=== PATIENT | female | born 1935 | race Caucasian/White ===

== ENCOUNTER 2020-01-02 08:49 | Outpatient (CLI) | payer MEDICARE, BC, SELFPAY ==
--- NOTE | ~2020-01-02 | US_ITS ---
EXAMINATION: US carotid duplex BI DATE: 01/02/2020 09:32 INDICATION: Carotid stenosis TECHNIQUE: Grayscale, color Doppler, and pulsed Doppler images of the cervical carotid arteries were obtained. The degree of vessel stenosis is placed in one of the following categories: normal, <50%, 5 0-69%, >=70% but less than near-occlusion, near-occlusion, or total occlusion. Note that percent sten osis relative to normal distal artery lumen diameter is indirectly measured from velocity measurement s as described by Junior, et al. Radiology 2003; 229:340-346. COMPARISON: None. FINDINGS: RIGHT: The right common carotid artery (CCA) peak systolic velocity (PSV) is 87 cm/s. The right internal car otid artery (ICA) PSV is 88 cm/s. The right ICA end-diastolic velocity (EDV) is 25 cm/s. The right IC A/CCA PSV ratio is 1.0. Grayscale and color Doppler images yield an estimate of <50% diameter reducti on from plaque in the ICA. The external carotid artery (ECA) PSV is 97 cm/s. There is antegrade flow in the right vertebral artery. LEFT: The left CCA PSV is 88 cm/s. The left ICA PSV is 108 cm/s. The left ICA EDV is 11 cm/s. The left ICA/ CCA PSV ratio is 1.2. Grayscale and color Doppler images yield an estimate of <50% diameter reduction from plaque in the ICA. The ECA PSV is 116 cm/s. There is antegrade flow in the left vertebral arter y. IMPRESSION: 1. <50% stenosis in the right internal carotid artery. 2. <50% stenosis in the left internal carotid artery. Reviewed, dictated and finalized at location A.
== END 2020-01-02 08:50 | disposition home or self-care (01) ==
PROVIDERS: PCP Internal Medicine; Visit Provider Internal Medicine
DX: I65.29 Occlusion and stenosis of unspecified carotid artery (principal)
CPT/HCPCS: 93880

== ENCOUNTER 2020-07-07 10:45 | Outpatient (CLI) | payer MEDICARE, BC, SELFPAY ==
--- NOTE | ~2020-07-07 | DEXA_ITS ---
Bone Density Report Name: Diamante Draper Age: 84 Sex: Female Ethnicity: White Date of : 1935 Indication: postmenopausal osteoporosis; monitoring treatment; height loss; Referring Provider: Miguel Noriega Study: Bone densitometry was performed. Exam Date: July 07, 2020 Accession number: [id number] Bone Density: Region BMD T-score Z-score Classification AP Spine(L1-L4) 0.827 -2.0 0.9 Osteopenia Femoral Neck (Left) 0.498 -3.2 -0.6 Osteoporosis Total Hip (Left) 0.589 -2.9 -0.6 Osteoporosis Femoral Neck (Right) 0.512 -3.0 -0.5 Osteoporosis Total Hip (Right) 0.614 -2.7 -0.4 Osteoporosis Femoral Neck Mean 0.505 -3.1 -0.6 Osteoporosis Total Hip Mean 0.601 -2.8 -0.5 Osteoporosis World Health Organization criteria for BMD impression classify patients as: Normal (T-score at or above -1.0), Osteopenia (T-score between -1.0 and -2.5), or Osteoporosis (T-score at or below -2.5). 10-year Fracture Risk: FRAX not reported because: Some T-score for Spine Total or Hip Total or Femoral Neck at or below -2.5 Treated for osteoporosis Previous Exams: Region Exam Age BMD T-score BMD Change BMD Change Date g/cm2 vs Baseline vs Previous AP Spine (L1-L4) 07/07/2020 84 0.827 -2.0 0.066 (8.6%)# 0.005 (0.6%)# 06/14/2018 82 0.822 -2.0 0.061 (8.0%)* 0.034 (4.3%)* 03/09/2015 79 0.788 -2.4 0.027 (3.6%)* -0.016 (-1.9%) 11/13/2011 75 0.804 -2.2 0.043 (5.6%)* 0.036 (4.7%)* 10/11/2009 73 0.768 -2.5 0.007 (0.9%) 0.007 (0.9%) 09/09/2007 71 0.761 -2.6 Total Hip(Left) 07/07/2020 84 0.589 -2.9 -0.081 (-12.2% -0.065 (-10.0% 06/14/2018 82 0.654 -2.4 -0.016 (-2.4%) 0.014 (2.1%) 03/09/2015 79 0.641 -2.5 -0.030 (-4.4%) -0.030 (-4.4%) 11/13/2011 75 0.670 -2.2 0.000 (0.0%) -0.009 (-1.4%) 10/11/2009 73 0.680 -2.1 0.010 (1.4%) 0.010 (1.4%) 09/09/2007 71 0.670 -2.2 Total Hip(Right) 07/07/2020 84 0.614 -2.7 -0.004 (-0.6%) 0.007 (1.2%)# 11/13/2011 75 0.607 -2.7 -0.011 (-1.7%) -0.010 (-1.7%) 10/11/2009 73 0.617 -2.7 0.000 (-0.1%) 0.000 (-0.1%) 09/09/2007 71 0.618 -2.7 *Denotes significance at 95% confidence level, LSC for AP Spine = 0.022 g/cm2, LSC for Total Hip = 0.027 g/cm2 # Denotes dissimilar scan types or analysis methods Clinical Information Provided by Patient: Smokes Is being treated for osteoporosis Has used the following medications: Fosamax (i.e. alendronate), Vitamin D Patien
--- NOTE | ~2020-07-07 | XR_ITS ---
EXAMINATION: XR chest 2V DATE: 07/07/2020 11:03 INDICATION: Lung nodule. TECHNIQUE: Frontal and lateral views of the chest were obtained. COMPARISON: Chest 2 views 05/13/2019, chest CT 03/13/2014 FINDINGS: The lungs are hyperexpanded with lucencies, consistent with emphysema. There are changes of left upper lobectomy. No pleural effusion or pneumothorax. The heart size is normal. There are is an old healed fracture of left fifth rib. There are multiple chronic vertebral body fractures. IMPRESSION: 1. Emphysema. Reviewed, dictated and finalized at location B. CUTTER APPRENTICE IMPRESSION: 1. Emphysema.
== END 2020-07-07 10:46 | disposition home or self-care (01) ==
LOC: CHSIMG 10:48
PROVIDERS: PCP Internal Medicine; Visit Provider Internal Medicine
DX: M81.0 Age-related osteoporosis without current pathological fracture (principal); R91.1 Solitary pulmonary nodule
CPT/HCPCS: 71046; 77080

== ENCOUNTER 2020-12-25 08:11 | Outpatient (CLI) | payer MEDICARE, SELFPAY | END 2020-12-25 08:12 | disposition home or self-care (01) | LOC: CHSCOVIDVC 08:13 | PROVIDERS: PCP Internal Medicine | DX: Z23 Encounter for immunization (principal) | CPT/HCPCS: 0011A; 91301 ==

== ENCOUNTER 2021-01-22 08:07 | Outpatient (CLI) | payer MEDICARE, SELFPAY | END 2021-01-22 08:08 | disposition home or self-care (01) | LOC: CHSCOVIDVC 08:07 | PROVIDERS: PCP Internal Medicine | DX: Z23 Encounter for immunization (principal) | CPT/HCPCS: 0012A; 91301 ==

== ENCOUNTER 2021-06-22 10:50 | Outpatient (CLI) | payer MEDICARE, SELFPAY ==
--- NOTE | ~2021-06-22 | CT_ITS ---
EXAMINATION: CT lung screening DATE: 06/22/2021 11:08 INDICATION: Personal history of tobacco dependence, current smoker with 34 pack year history TECHNIQUE: Computed tomography (CT) of the chest was performed without intravenous contrast. The dose -length product (DLP) was 57.16 mGy-cm. Automated exposure control and iterative reconstruction techn [employer] were employed. COMPARISON: 03/13/2014; chest radiograph dated 07/07/2020 FINDINGS: There is moderate emphysema. Scarring is noted in the lung apices. No suspicious pulmonary nodules are identified. There are lymph nodes of the right major fissure. A calcified pleural plaque is noted posteriorly on the left. There is no pleural effusion or pneumothorax. No pathologically enl arged thoracic lymph nodes are identified. The heart size is normal. Calcified coronary artery athero sclerosis is noted. Calcified bilateral hilar and mediastinal lymph nodes are consistent with old gra nulomatous disease. There is a hemorrhagic cyst of the right kidney upper pole. Multiple chronic vert ebral body fractures are again noted. IMPRESSION: 1. Lung-RADS category 1: Negative. Reviewed, dictated and finalized at location A.
== END 2021-06-22 10:51 | disposition home or self-care (01) ==
LOC: CHSIMG 10:53
PROVIDERS: PCP Internal Medicine; Visit Provider Internal Medicine
DX: Z12.2 Encounter for screening for malignant neoplasm of respiratory organs (principal); Z87.891 Personal history of nicotine dependence
CPT/HCPCS: 71271

== ENCOUNTER 2022-07-04 13:52 | Outpatient (CLI) | payer MEDICARE, SELFPAY ==
--- NOTE | ~2022-07-04 | CT_ITS ---
EXAMINATION: CT lung screening DATE: 07/04/2022 14:37 INDICATION: Personal history of nicotine dependence, current smoker with 35 pack year history TECHNIQUE: Computed tomography (CT) of the chest was performed without intravenous contrast. The dose -length product (DLP) was 59.72 mGy-cm. Automated exposure control and iterative reconstruction techn ique were employed. COMPARISON: 06/22/2021 FINDINGS: There is moderate emphysema. Scarring is again noted in the lung apices. Stable fissural ly mph nodes are present in the right major fissure. No suspicious pulmonary nodules are identified. The re is a stable calcified plaque posteriorly on the left. No pathologically enlarged thoracic lymph no pancho are identified. The heart size is normal. Calcified right hilar and mediastinal lymph nodes are c onsistent with old granulomatous disease. There are changes of left partial pneumonectomy. There are multiple compression chronic thoracic vertebral body compression and burst fractures. There is a new compression fracture of T6. An approximately 10 mm soft tissue density is noted in the medial aspect of the left breast. There is a 7 mm hemorrhagic cyst of the right kidney. IMPRESSION: 1. Lung-RADS category 1S: Negative. 2. Nodular soft tissue density in the medial aspect of the left breast. Consider further evaluation w ith diagnostic mammogram and ultrasound. Reviewed, dictated and finalized at location B. MING POOL SALESPERSON IMPRESSION: 1. Lung-RADS category 1S: Negative. 2. Nodular soft tissue density in the medial aspect of the left breast. Conside r further evaluation with diagnostic mammogram and ultrasound.
== END 2022-07-04 13:53 | disposition home or self-care (01) ==
LOC: CHSIMG 13:54
PROVIDERS: PCP Internal Medicine; Visit Provider Internal Medicine
DX: Z12.2 Encounter for screening for malignant neoplasm of respiratory organs (principal); Z87.891 Personal history of nicotine dependence
CPT/HCPCS: 71271

== ENCOUNTER 2022-07-13 08:54 | Outpatient (CLI) | payer MEDICARE, SELFPAY ==
--- NOTE | ~2022-07-13 | MMUS_ITS ---
EXAMINATION: MM diagnostic jacky BI w samreen, US breast LT complete HISTORY: Nodular densities seen in the left breast on prior CT examination. TECHNIQUE: Additional 3-D tomosynthesis images of the breasts were performed and synthetic 2-D images were generated. CAD analysis was submitted and interpreted. High resolution breast ultrasound was pe rformed. COMPARISON: 01/17/2013 BREAST PARENCHYMAL COMPOSITION: Breast composed of scattered areas of fibroglandular density FINDINGS: MAMMOGRAPHIC FINDINGS: The right breast is stable without evidence for malignancy. In the upper inner quadrant of the left b reast posteriorly there is a cluster of nodules, the largest of which appears spiculated measuring 9 mm maximum dimension. ULTRASOUND: Complete left breast ultrasound including all 4 quadrants in the subareolar location: At 10:00, 8 cm from the nipple, there is an antiparallel irregular shaped hypoechoic mass measuring 10 x 9 x 9 mm wi th posterior shadowing. This corresponds to the area of abnormality on mammography. At 2:00, 4 cm fro m the nipple, there is a slightly irregular hypoechoic mass with mixed posterior attenuation, paralle l orientation measuring 9 x 7 x 4 mm. IMPRESSION: 1. Suspicious left breast masses located at 10:00, 8 cm from the nipple and 2:00, 4 cm from the nippl e. 2. Ultrasound-guided left breast biopsies recommended. BI-RADS category 5, highly suggestive of malignancy. Reviewed, dictated and finalized at location A. ROOM CHECKER IMPRESSION: 1. Suspicious left breast masses located at 10:00, 8 cm from the nipple and 2:0 0, 4 cm from the nipple. 2. Ultrasound-guided left breast biopsies recommended. BI-RADS category 5, highly suggestive of malignancy.
== END 2022-07-13 08:55 | disposition home or self-care (01) ==
LOC: CHSIMG 08:56
PROVIDERS: PCP Internal Medicine; Visit Provider Internal Medicine
DX: N63.24 Unspecified lump in the left breast, lower inner quadrant (principal)
CPT/HCPCS: 76641; 77062; 77066; G0279

== ENCOUNTER 2022-07-25 08:56 | Outpatient (CLI) | payer MEDICARE, SELFPAY ==
--- NOTE | ~2022-07-25 | MMUS_ITS ---
EXAMINATION: US breast biopsy LT w image, MM post biopsy invasive LT DATE: 07/25/2022 10:41 (accession [id number]), 07/25/2022 10:37 (accession [id number]) INDICATION: Indeterminate left breast mass at the 10:00 location. Ultrasound-guided core biopsy is re quested to evaluate for malignancy. TECHNIQUE AND FINDINGS: The risks and potential benefits of the procedure were discussed with the patient including bleeding and infection. A time out was performed. The skin of the left breast was prepared and draped in usual sterile fashion. Lidocaine was used for superficial anesthesia. Lidocaine with epinephrine was used for deep anesthesia. A vacuum-assisted biopsy needle was advanced through to the outer edge of the region of interest from an inferior approach utilizing sonographic guidance. A total of six tissue core samples were obtaine d through the lesion. A tissue marker clip was then placed at the biopsy site. Hemostasis was achieve d. A sterile bandage was applied. The patient tolerated procedure well and there was no evidence of immediate complication. The patient was given verbal instructions to return to the Emergency Department in the event of severe breast pa in or rapid breast enlargement. A two view left breast mammogram was obtained to document tissue abel er clip placement. IMPRESSION: 1. Successful ultrasound-guided vacuum-assisted biopsy of left breast mass with tissue marker placeme nt. Reviewed, dictated and finalized at location A. USTION ENGINEER IMPRESSION: 1. Successful ultrasound-guided vacuum-assisted biopsy of left breast mass with tissue marker placement.
== END 2022-07-25 08:57 | disposition home or self-care (01) ==
PROVIDERS: PCP Internal Medicine; Visit Provider Internal Medicine
DX: D05.12 Intraductal carcinoma in situ of left breast (principal)
CPT/HCPCS: 19083; 88305; 88342; 88360; 88365; A4648

== ENCOUNTER 2022-10-30 08:46 | Outpatient (CLI) | payer MEDICARE, SELFPAY ==
--- NOTE | 2022-10-30 09:00 | ECG_ITS ---
Measurements Intervals [place] Rate: 88 P: 91 WI: 181 QRS: 91 QRSD: 90 T: 86 QT: 368 QTc: 446 Interpretive Statements SINUS RHYTHM LIMB LEAD REVERSAL DELAYED PRECORDIAL R/S TRANSITION MINIMAL Q WAVES- INFERIOR LEADS BASELINE ARTIFACT- II, III, AVF, V6 BORDERLINE ECG NO PREVIOUS ECG AVAILABLE FOR COMPARISON Electronically Signed On 10-30-2022 11:40:15 CAREER DISCOVERY TEACHER by Roman King D.O.
== END 2022-10-30 08:47 | disposition home or self-care (01) ==
PROVIDERS: PCP Internal Medicine; Visit Provider Anesthesiology
DX: Z01.818 Encounter for other preprocedural examination (principal); Z72.0 Tobacco use
CPT/HCPCS: 93005

== ENCOUNTER 2022-11-03 01:50 | Day surgery (SDC) | payer MEDICARE, SELFPAY ==
[2022-10-27 12:46] VITALS: BMI 19.8
--- NOTE | 2022-10-27 12:57 | PC.NURSE ---
Report to the Outpatient Waiting Room, entrance under the green pavilion located off [facility], at time _0930_ on date _[id number]_. Planned Procedure Time: _1200_. Time changes happen often and if your time is changed the preop area will call you the afternoon before. - You and your visitor will be asked to self-screen and do not enter if you have any COVID symptoms. - Only one visitor is requested with a max of two and NO children visitors are allowed at this time. - The patient visitor may be requested to leave or wait in car when not with patient due to distancing restrictions. - A mask is optional within the hospital at this time. Patients may have clear liquids (water, carbonated beverages, clear teas, apple juice) until 3 hours prior to surgery with a maximum of 20 ounces. - No food from midnight until time of surgery Take the following medications with a SIP of water the morning of surgery: ___Albuterol inhaler if needed DO NOT STOP ANY OF YOUR OTHER PRESCRIPTION MEDICATIONS PRIOR TO SURGERY ?EXCEPT THE FOLLOWING Medications to discontinue per physician __Vitamin B and D and fish oil Date to take last [id number]__[id number] Please no make-up, nail yemeni, hairspray, perfume, deodorant, or body powder the day of surgery. No jewelry (including any body piercings) or valuables the day of surgery, leave them at home. Please take a shower or bath the night before, or the morning of, surgery with an antibacterial soap. Wear comfortable, loose fitting clothing. - Jewelry must be removed prior to entering the operating room. Rings and piercings that are not removed may be cut off. - The hospital will not accept responsibility for valuables. - Please leave all valuables, including medications, at home the day of surgery. If you are going home after surgery, a licensed compactor driver must drive you home. - NO public transportation without another adult if you receive anesthesia. - We recommend that an adult stay with you for 24 hours following discharge. - We also recommend that you do not drive, make important decision, drink alcoholic beverages, or take any drugs that were not prescribed by your health care provider for at least 24 hours after your discharge time. Follow any additional instructions given to you from your surgeon. If you or anyone in your household have experienced Covid symptoms in the past week, please notify your surgeon or the nurse liaison at the phone number below for possible testing. Telephone instructions given to _Patient__and asked if any additional questions and then verbalized understanding. Patient advised to call surgeon office or pre surgery nurse liaison [phone] if any additional questions.
--- NOTE | ~2022-11-03 | NM_ITS ---
EXAMINATION: NM sentinel node inject only INDICATION: Left breast cancer TECHNIQUE: 1.1 mCi Tc 99m Lymphoseek were injected in 4 aliquots in the upper outer quadrant of the b reast near the areola. No images were obtained. IMPRESSION: 1. Status post left breast sentinel lymph node radiopharmaceutical injection. Reviewed, dictated and finalized at location A. 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
--- NOTE | ~2022-11-03 | MM_ITS ---
EXAMINATION: MM surgical specimen LT INDICATION: Specimen radiograph TECHNIQUE: Single specimen radiograph is submitted for review. COMPARISON: None available FINDINGS: The specimen contains a mass with associated biopsy marker. IMPRESSION: 1. Biopsy marker and mass within the specimen radiograph. Reviewed, dictated and finalized at location A. OPERATIONS ANALYST
[2022-11-03] MEDS: ACETAMINOPHEN 500 MG TABLET 1000 MG PO (10:07)
[2022-11-03 10:29] VITALS: BP 182/87; PULSE 103; RESP 16; TEMP 36.3; O2SAT 98
[2022-11-03] MEDS: LACTATED RINGERS 1,000 ML 30 ML IV CONT ×2 (11:30→13:20)
--- NOTE | 2022-11-03 11:35 | WPDHPUPDATE1 ---
History and Physical Update Update Date/Time: 11/03/22 11:35 History and Physical has been reviewed, including an updated exam of the patient. There are NO changes in the patient's condition. Risks, benefits, and alternatives have been discussed and questions answered. Patient agrees to proceed with procedure.
--- NOTE | 2022-11-03 11:35 | PM.IMHP ---
H&P: HPI History of Present Illness Date/Time: 11/03/22 11:35 Chief Complaint: left breast cancer Narrative: 86 yo woman presents for left breast lumpectomy with SLN biopsy. She denies any changes since last seen in office. Review of Systems Review of Systems: All systems reviewed & are unremarkable except as noted in HPI and below Constitutional: Constitutional: Denies chills, Denies fever(s), Denies headache(s) and Denies weight loss Eyes: Eyes: Denies change in vision ENT: Denies dizziness, Denies headache(s), Denies neck mass and Denies throat swelling Cardiovascular: Cardiovascular: Denies chest pain, Denies lightheadedness and Denies dyspnea Respiratory: Respiratory: Denies cough, Denies dyspnea and Denies wheezing Gastrointestinal: Gastrointestinal: Denies abdominal pain, Denies change in bowel habits, Denies nausea and Denies vomiting Genitourinary: Genitourinary: Denies hematuria and Denies dysuria Musculoskeletal: Musculoskeletal: Reports as per HPI Integumentary/Breasts: Skin/Breast: Reports as per HPI Neurologic: Denies dizziness and Denies headache(s) Allergic/Immunologic: Allergic/Immunologic: Denies throat swelling and Denies wheezing [facility] Past Medical History Medical History (Updated 08/31/22 @ 17:14 by Damon Samuel DO) Emphysema of lung Social History Social History (Updated 08/31/22 @ 10:39 by Shea Juarez [facility]) Smoking packs per day: 0.75 Smoking cigarettes per day: 15.0 Years smoked: 40 Smoking pack-years: 30.00 Smoking status: Current every day smoker Tobacco type: cigarettes Living arrangements: with friend(s) Spiritual care concerns: No Meds Home Medications and Allergies Home Medications Medication Instructions Recorded Confirmed Type albuterol sulfate 90 mcg/actuation 1 inh inhalation Q4-6H PRN Dyspnea 08/31/22 11/03/22 History breath activated powder inhaler pravastatin 10 mg tablet 10 mg PO DAILY 08/31/22 11/03/22 History cetirizine 10 mg tablet (Zyrtec) 10 mg PO HS 10/27/22 11/03/22 History cholecalciferol (vitamin D3) 50 50 mcg PO DAILY 10/27/22 11/03/22 History mcg (2,000 unit) capsule (Vitamin D3) cyanocobalamin (vitamin B-12) 500 500 mcg PO DAILY 10/27/22 11/03/22 History mcg tablet,extended release omega 5-xyg-let-fish oil 1,000 mg 1 cap PO DAILY 10/27/22 11/03/22 History (120 mg-180 mg) capsule (Fish Oil) Allergies Allergy/AdvReac Type Severity Reaction Status Date / Time No Known Allergies Allergy Unknown Verified 11/03/22 09:57 Vital Signs Vital Signs - 24 hr 11/03/22 10:29 Temperature 36.3 C L Pulse Rate 103 H Respiratory Rate 16 Blood Pressure 182/87 H Pulse Oximetry 98 Oxygen Delivery Room Air Exam Const: General: no acute distress and alert Orientation/consciousness: patient oriented x3 HENMT: Head: normocephalic and atraumatic Ears: hearing grossly normal bilaterally Face/Nose/Sinus: Normal nares present Mouth: Yes Normal oral and palatal mucosa present Eyes: Periorbital: periorbital findings normal Sclera: sclerae normal EOM: EOMs intact bilaterally Neck: Neck: normal visual inspection, no lymphadenopathy and trachea midline Chest: Chest palpation & inspection: normal inspection of the chest Resp: Effort & Inspection: normal respiratory effort Auscultation: clear to auscultation bilaterally Cardio: Jugular venous distension: no JVD Rate: regular rate Rhythm: regular rhythm Heart sounds: S1 normal heart sound present and S2 normal heart sound present Peripheral pulses: Peripheral pulses 2+ throughout GI: Inspection: normal to inspection GI Palp: Yes Soft to palpation, No Tenderness to palpation present (GI), No Guarding due to palpation present (GI) and No Rebound tenderness present Percussion: Yes normal to percussion Auscultation: normal bowel sounds : General: Yes no CVA tenderness Back/Spine/Pelvis: Back: no CVA tenderness Neuro: General: patient or
[2022-11-03] MEDS: KETOROLAC 15 MG/ML VIAL (*BKC) IV PUSH (11:37)
--- NOTE | 2022-11-03 11:46 | WPDANESEPPF ---
Anes - Initial Pre Proc Eval Procedure: Operation Date: 11/03/22 12:00 Proposed Procedures p Left Breast Lumpectomy with [place] Node Biopsy - Damon Samuel DO Date/Time: 11/03/22 11:46 Surgeon: Damon Samuel DO Pre Op Diagnosis: left breast cancer Patient Data Age: 86 Gender: F Height: 1.57 m Weight: 49.6 kg Last Vital Signs Temp 97.4 F L 11/03/22 10:29 Pulse 103 H 11/03/22 10:29 Resp 16 11/03/22 10:29 BP 182/87 H 11/03/22 10:29 Pulse Ox 98 11/03/22 10:29 O2 Del Method Room Air 11/03/22 10:29 Allergies Allergy/AdvReac Type Severity Reaction Status Date / Time No Known Allergies Allergy Unknown Verified 11/03/22 09:57 Home Medications Medication Instructions Recorded Confirmed Type albuterol sulfate 90 mcg/actuation 1 inh inhalation Q4-6H PRN Dyspnea 08/31/22 11/03/22 History breath activated powder inhaler pravastatin 10 mg tablet 10 mg PO DAILY 08/31/22 11/03/22 History cetirizine 10 mg tablet (Zyrtec) 10 mg PO HS 10/27/22 11/03/22 History cholecalciferol (vitamin D3) 50 50 mcg PO DAILY 10/27/22 11/03/22 History mcg (2,000 unit) capsule (Vitamin D3) cyanocobalamin (vitamin B-12) 500 500 mcg PO DAILY 10/27/22 11/03/22 History mcg tablet,extended release omega 8-spg-eti-fish oil 1,000 mg 1 cap PO DAILY 10/27/22 11/03/22 History (120 mg-180 mg) capsule (Fish Oil) Patient hx anesthesia problems: none Family hx anesthesia problems: none Results Review: All pre-operative results and documents have been reviewed as part of the pre-operative evaluation. [facility] Past Medical History Medical History (Updated 08/31/22 @ 17:14 by Damon Samuel DO) Emphysema of lung Social History Social History (Updated 08/31/22 @ 10:39 by Shea Juarez [facility]) Smoking packs per day: 0.75 Smoking cigarettes per day: 15.0 Years smoked: 40 Smoking pack-years: 30.00 Smoking status: Current every day smoker Tobacco type: cigarettes Living arrangements: with friend(s) Spiritual care concerns: No Anes - Eval Final PreProcedure Day of Procedure 11/03/22 11:46 Patient weight: normal Heart: regular rate and rhythm Lungs: clear to auscultation Airway: Mallampati scale class II Neurological: alert and oriented Last oral intake: >/= 8 hours ASA classification: III Emergent: no Anesthetic plan: proceed Anesthesia type and monitoring: general LMA and standard monitoring Results Review: All pre-operative results and documents have been reviewed as part of the pre-operative evaluation. Informed Consent: The patient's anesthetic plan and its attendant risks and benefits were discussed with the patient/family/POA. Questions were solicited and answers provided to the satisfaction of the patient/family/POA.
[2022-11-03] MEDS: ceFAZolin 2 GM/D5W 50 ML 2 GM/50 ML BAG IVPB (12:07)
[2022-11-03] MEDS: BUPIVACAINE/EPINEPHRINE 0.5% 50 ML VIAL 30 ML INFILTRATE (12:48)
[2022-11-03] MEDS: ISOSULFAN BLUE 1% INJ 5 ML VIAL SUB-Q (12:48)
--- NOTE | 2022-11-03 13:19 | W.PM.PROC2 ---
Procedure Note - Detailed Date of Procedure 11/03/22 Pre-op Diagnosis left breast cancer Post-op Diagnosis Same Procedure Performed Left breast lumpectomy with left axillary sentinel lymph node biopsy Surgeon Damon Samuel, DO Anesthesia General and Local (0.5% bupivacaine with epinephrine) Indications This is an 86-year-old woman who presented with a recent finding of left breast cancer. 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 Discussions were made with the patient about treatment options and decision was made to proceed with left breast lumpectomy with sentinel lymph node biopsy. Findings Left breast lumpectomy was performed. I infiltrated isosulfan blue in the periareolar region preoperatively to help identify the left axillary lymph nodes. The mass was in the upper inner quadrant of the left breast. I was able to palpate this preoperatively, therefore wire localization was not necessary. After performing a lumpectomy in this region, the specimen was sent to Radiology to confirm that the previous biopsy marker was within the specimen. This was also marked with a short suture superior and long suture lateral. The specimen was then sent to the lab for pathology. I then used the navigator probe to identify increased nuclear uptake the left axillary region. An incision was made directly over the area of increased uptake and I carefully dissected through the clavipectoral fascia and identified a deep axillary lymph node that was blue and had increased nuclear uptake. This lymph node was removed and was having a reading around 830 with the navigator probe. After removing this lymph node the baseline uptake within the remaining axillary contents was only around 30-40. No other blue lymph nodes were identified. The sentinel lymph node was sent to the lab for pathology Description of Procedure Procedure as well as risks, benefits, and alternatives were discussed with the patient. Written consent was obtained and placed in chart prior to procedure. Patient was brought back to surgical suite. She was placed supine on operating table. Time-out was done to confirm patient and procedure. She was then intubated by the anesthesia department. Her left chest and axillary region was prepped and draped in sterile fashion using chlorhexidine prep. The palpable area of concern was identified in the left breast upper inner quadrant. 0.5% bupivacaine with epinephrine was infiltrated locally around this region. A 4 cm curvilinear incision was made directly over this region using a 15 blade scalpel. Electrocautery was used for hemostasis and for dissection through the subcutaneous tissue. The breast tissue was then identified and carefully dissected circumferentially around the palpable area of concern. The dissection was cared out all the way down to the pectoral fascia. The lumpectomy was completely excised using electrocautery. The specimen was then marked with a short suture superior and long suture lateral. This was then sent to Radiology to confirm that the previous biopsy marker was within the specimen. Once this was confirmed, I then inspected for hemostasis which appeared adequate. The deep tissue was then reapproximated using 3-0 Vicryl simple interrupted sutures. The deep dermis was also approximated using 3-0 Vicryl simple interrupted sutures. The skin was then approximated using 4-0 Monocryl running subcuticular suture. Exofin glue was then applied on top. I then moved my attention over to the left axillary region. The nuclear probe was used to identify the increased uptake within the axilla. 0.5% bupivacaine with epinephrine was infiltrated locally around this region. A 3 cm oblique incision was made in the left axilla using a 15 blade scalpel. Electrocautery was used for hemostasis and for dissection through the subcutaneous tissue. The clavipectoral fascia was incised using electrocautery.
[2022-11-03 13:20] VITALS: BP 152/68; PULSE 93; RESP 14; TEMP 36.5; O2SAT 99
[2022-11-03 13:35] VITALS: BP 158/70; PULSE 88; RESP 20; O2SAT 99
[2022-11-03 13:50] VITALS: BP 157/76; PULSE 90; RESP 18; O2SAT 96
[2022-11-03 14:02] VITALS: BP 167/80; PULSE 94
[2022-11-03 14:30] VITALS: BP 155/68; PULSE 85
== END 2022-11-03 14:50 | disposition home or self-care (01) ==
PROVIDERS: PCP Internal Medicine; Visit Provider Surgery
PROC: (CPT 19301; principal; 2022-11-03 12:00)
DX: C50.212 Malignant neoplasm of upper-inner quadrant of left female breast (principal); F17.210 Nicotine dependence, cigarettes, uncomplicated
CPT/HCPCS: 19301; 38525; 38792; 76098; 88307; A9270; A9520; J0690; J1100; J1885; J2405; J2704; J3010; J7120

== ENCOUNTER 2023-04-18 08:18 | Outpatient (CLI) | payer MEDICARE, SELFPAY ==
--- NOTE | ~2023-04-18 | US_ITS ---
EXAMINATION: US carotid duplex BI DATE: 04/18/2023 08:59 INDICATION: Carotid stenosis TECHNIQUE: Grayscale, color Doppler, and pulsed Doppler images of the cervical carotid arteries were obtained. The degree of vessel stenosis is placed in one of the following categories: normal, <50%, 5 0-69%, >=70% but less than near-occlusion, near-occlusion, or total occlusion. Note that percent sten osis relative to normal distal artery lumen diameter is indirectly measured from velocity measurement s as described by Junior, et al. Radiology 2003; 229:340-346. Notes: Normal: Peak systolic velocity <125 centimeters/sec and no plaque <50%. Peak systolic velocity <125 ( EDV <40; ICA/CCA PSV ratio <2.0; used these factors only a tandem lesions or low cardiac output or co ntralateral disease) 50-69 %: PSV 125-230 (EDV 40-100; ratio 2-4) >= 70% but less than near occlusion: PSV greater than 230 (EDV > 100; ratio> 4.0) Near Occlusion: PSV that is variable; markedly narrowed lumen Occlusion: Absent flow on color/spectral Doppler and no lumen on enciso scale. COMPARISON: None. FINDINGS: RIGHT: The right common carotid artery (CCA) peak systolic velocity (PSV) is 91 cm/s. The right internal car otid artery (ICA) PSV is 79 cm/s. The right ICA end-diastolic velocity (EDV) is 27 cm/s. The right IC A/CCA PSV ratio is 0.87. The external carotid artery (ECA) PSV is 68 cm/s. There is antegrade flow in the right vertebral artery. LEFT: The left CCA PSV is 70 cm/s. The left ICA PSV is 69 cm/s. The left ICA EDV is 22 cm/s. The left ICA/C CA PSV ratio is 0.99. The ECA PSV is 76 cm/s. There is antegrade flow in the left vertebral artery. IMPRESSION: 1. Less than 50% stenosis in the right internal carotid artery by sonographic criteria. 2. Less than 50% stenosis in the left internal carotid artery by sonographic criteria. Reviewed, dictated and finalized at location B. IMPRESSION: 1. Less than 50% stenosis in the right internal carotid artery by sonographic piter scott. 2. Less than 50% stenosis in the left internal carotid artery by sonographic antoine chavez.
--- NOTE | ~2023-04-18 | CT_ITS ---
EXAMINATION: CT diagnostic chest w con DATE: 04/18/2023 09:31 INDICATION: Patient with left axillary mass status post left lumpectomy and left axillary lymph node dissection on 11/03/2022 for left breast cancer. TECHNIQUE: Transaxial computed tomographic images of the chest were obtained after the administration of 75 cc of Omnipaque 350 intravenous contrast. The dose-length product (DLP) was 130.42 mGy-cm. Ite rative reconstruction was used. COMPARISON: 07/04/2022 FINDINGS: There is moderate emphysema. Scarring is noted in the lung apices. Calcified pleural plaque is noted posteriorly on the left. There is a 3.6 x 2.6 cm fluid collection of the left axilla. The h eart size is normal. No pleural effusion or pneumothorax. Changes of left partial pneumonectomy are n oted. There are multiple chronic thoracic vertebral body compression and burst fractures. A hemorrhag ic cyst of the right kidney is again noted. IMPRESSION: 1. 3.6 x 2.6 cm fluid collection of the left axilla which could reflect a postoperative seroma relate d to axillary lymph node dissection. Reviewed, dictated and finalized at location A. IMPRESSION: 1. 3.6 x 2.6 cm fluid collection of the left axilla which could reflect a posto perative seroma related to axillary lymph node dissection.
[2023-04-18 08:46] LABS: Estimated Glomerular Filt Rate > 60
== END 2023-04-18 08:19 | disposition home or self-care (01) ==
LOC: CHSIMG 08:20
PROVIDERS: PCP Internal Medicine; Visit Provider Internal Medicine
DX: R59.0 Localized enlarged lymph nodes (principal); Z85.118 Personal history of other malignant neoplasm of bronchus and lung; I65.23 Occlusion and stenosis of bilateral carotid arteries
CPT/HCPCS: 71260; 93880; Q9967

== ENCOUNTER 2024-04-23 09:50 | Outpatient (CLI) | payer MEDICARE, SELFPAY ==
--- NOTE | ~2024-04-23 | CT_ITS ---
CT Scan of the Chest without Contrast: Clinical Indication: COPD Technique: Contiguous sections were acquired throughout the chest without intravenous contrast. Dose reduction technique was used on this scan by utilizing automated exposure control and iterative recon struction technique. The dose-length product (DLP) was 121.11 mGy-cm. COMPARISON: 04/18/2023 Findings: There is no evidence of any significant mediastinal, hilar or axillary lymphadenopathy. There are ext ensive atherosclerotic calcifications of the aorta and coronary arteries. There is no evidence of pleural or pericardial effusion. Severe emphysema is stable from prior exam. No suspicious pulmonary nodule or consolidation. Images through the upper abdomen reveal no abnormalities. There are stable compression fractures of T 5 and T6 and T8. There is progressive loss of height of severe compression fracture of T9 is compared to prior exam. There are stable compression fractures of T11, T12, L1, and L2. Impression: Severe emphysema, stable from prior exam. Multiple compression fractures in the spine, as above. There has been progressive worsening of the T9 compression fracture. Remaining fractures are unchanged. Previously noted fluid collection at the left axilla is resolved. Reviewed, dictated and finalized at location . Impression: Severe emphysema, stable from prior exam. Multiple compression fractures in the spine, as above. There has been progressi ve worsening of the T9 compression fracture. Remaining fractures are unchanged. Previously noted fluid collection at the left axilla is resolved.
== END 2024-04-23 09:51 | disposition home or self-care (01) ==
PROVIDERS: PCP Internal Medicine; Visit Provider Internal Medicine
DX: J44.9 Chronic obstructive pulmonary disease, unspecified (principal); M48.54XA Collapsed vertebra, not elsewhere classified, thoracic region, initial encounter for fracture
CPT/HCPCS: 71250

== ENCOUNTER 2024-10-01 09:53 | Outpatient (CLI) | payer MEDICARE, SELFPAY ==
--- NOTE | ~2024-10-01 | CT_ITS ---
CT of the Abdomen and Pelvis: Indication: Hematuria Technique: 2.5 mm axial scans were obtained through the abdomen and pelvis prior to and following in travenous administration of 110 cc of Omnipaque 350. Dose reduction technique was used on this scan b y utilizing automated exposure control and iterative reconstruction technique. The dose-length produc t (DLP) was 390.32 mGy-cm. Findings: Scans through the lung bases dose emphysematous change. The liver, spleen, pancreas, gallbladder, and adrenal glands are within normal limits. Simple left re nal cyst present. 2 small hypodense, nonenhancing right renal cysts are present. There are extensive atherosclerotic calcifications of the aorta and iliac vessels. No lymphadenopathy. No bowel obstruction or bowel wall thickening. There is no evidence to suggest acute appendicitis. Images through the pelvis were performed. Urinary bladder unremarkable. No pelvic mass seen. No ascit es. There are bilateral L5 pars interarticularis defects, with 1 cm anterolisthesis of L5 over S1. There are numerous compression fractures involving T11, T12, L1, L2, L3, L4, and L5. Impression: No definite etiology for hematuria identified. Small hyperdense right renal cysts. Numerous compression fractures in the visualized thoracolumbar spine. These may be osteoporotic in na ture. Correlate clinically for any possibility of myeloma or other underlying pathologic disease, tho ugh no distinct lytic lesions are identified. Bilateral L5 pars interarticularis defects, with 1 cm anterolisthesis of L5 over S1. Reviewed, dictated and finalized at [facility]. 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 Small hyperdense right renal cys ts. Numerous compression fractures in the visualized thoracolumbar spine. These may be osteoporotic in nature. Correlate clinically for any possibility of myeloma or other underlying pathologic disease, though no distinct lytic lesions are i dentified. Bilateral L5 pars interarticularis defects, with 1 cm anterolisthesis of L5 ove r S1.
[2024-10-01 10:28] LABS: Estimated Glomerular Filt Rate > 60
== END 2024-10-01 09:54 | disposition home or self-care (01) ==
PROVIDERS: PCP Internal Medicine; Visit Provider Internal Medicine
DX: R31.9 Hematuria, unspecified (principal); M48.54XA Collapsed vertebra, not elsewhere classified, thoracic region, initial encounter for fracture; M48.56XA Collapsed vertebra, not elsewhere classified, lumbar region, initial encounter for fracture
CPT/HCPCS: 74178; Q9967